=== PATIENT | female | born 1975 | race Two or more races ===

== ENCOUNTER 2024-01-18 11:54 | Outpatient (CLI) | payer OTHER ==
[~2024-01-18 11:54] MED LIST: LANTUS SOL100 UNIT/1; METFORMIN HCL1000 MG
== END 2024-01-18 11:59 | disposition home or self-care (01) ==
LOC: MAMO-SONO 11:54
DX: Z12.39 Encounter for other screening for malignant neoplasm of breast (principal)

== ENCOUNTER 2025-02-05 09:42 | Emergency (ER) | payer OTHER ==
[~2025-02-05] VITALS: Ht 149.9 cm; Wt 70.3 kg
[2025-02-05] MEDS ORDERED: INSULIN REGULAR, HUMAN 1,000 UNIT/10 ML UNITS IV ONE (10:00)
[2025-02-05 11:11] LABS: BASO % 0.4 % (0.1-1.2); EOS # 0.15 (0.04-0.54); EOS % 2.1 % (0.7-7.0); LYMPH # 1.47 (1.18-3.74); LYMPH % 20.7 % (19.3-53.1); MEAN PLATELET VOLUME 10.10 fl (9.4-12.4); MONO # 0.37 (0.24-0.82); MONO % 5.2 % (4.7-12.5); NEUT # 5.05 (1.56-6.13); NEUT % 71.3 % (34.0-71.1); RED CELL DISTRIBUTION WIDTH 16.7 % (11.6-14.4)
[2025-02-05 11:15] LABS: URINE APPEARANCE Clear; URINE BILIRRUBIN Negative (NEGATIVE); URINE BLOOD Large; URINE COLOR Yellow; URINE LEUKOCYTE Negative; URINE NITRATE Negative; URINE PROTEIN Trace (NEGATIVE); URINE UROBILINOGEN 1.0 E.U./dl
[2025-02-05 11:16] LABS: URINE BACTERIA 327.5 uL (0.0-1933); URINE EPITHELIAL CELLS 5.9 uL (0.0-38.8); URINE RBC 4629.6 uL (0.0-20.8); URINE WBC 9.5 uL (0.0-23.2)
[2025-02-05 11:48] LABS: BUN CREA RATIO 14.0 (7.0-25.0); CREATININE SERUM 0.95 mg/dL (0.55-1.02); GFR 62.78; OSMOLALITY SERUM 286.0 MOSM/KG (275-295)
[2025-02-05 11:53] LABS: GLUCOSE FASTING 312.0 mg/dL (65-100)
[2025-02-05 11:58] LABS: URINE CAST 0.00 uL (0.0-1.40); URINE GLUCOSE >=1000 MG/DL (NEGATIVE); URINE KETONE 80 (NEGATIVE)
== END 2025-02-05 16:48 | disposition home or self-care (01) ==
LOC: ER 09:42
PROVIDERS: Emergency Medicine
DX: E11.65 Type 2 diabetes mellitus with hyperglycemia (principal); Z79.4 Long term (current) use of insulin; Z79.84 Long term (current) use of oral hypoglycemic drugs; Z91.013 Allergy to seafood

== ENCOUNTER 2025-02-13 10:46 | Outpatient (CLI) | payer OTHER | END 2025-02-13 10:48 | disposition home or self-care (01) | LOC: MAMO-SONO 10:46 | PROVIDERS: ATTEND Internal Medicine Hematology & Oncology | DX: Z12.31 Encounter for screening mammogram for malignant neoplasm of breast (principal) ==